=== PATIENT | male | born 1995 | race Caucasian/White ===

== ENCOUNTER 2016-10-06 21:21 | Inpatient (IN) | payer OTHER ==
[~2016-10-06] VITALS: Ht 182.9 cm; Wt 78.9 kg
[2016-10-06 21:30] VITALS: BP 149/95; PULSE 108; RESP 18; TEMP 97.3; O2SAT 98
--- NOTE | 2016-10-06 21:54 | PD ---
HPI Chief Complaint: Psychiatric Symptoms Time Seen by Provider: 21:47 Travel History International Travel<30 days: No Contact w/Intl Traveler<30days: No Traveled to known affect area: No History of Present Illness HPI 20-year-old male brought in under the Bunn act by local police. Patient was brought in after his mother reported that she feels he is using some type of drug, and patient is acting strangely and feels that he has some sort of "God". Patient has been acting aggressively at home. Patient is somewhat flat and unresponsive to questioning. He does appear to be under the influence of something. Patient has no medical complaints. He has no known drug allergies. PFSH Past Medical History Medical History: Denies Significant Hx Tetanus Vaccination: Unknown ?: Not Past Surgical History Surgical History: No Previous Surgery Social History Alcohol Use: No Tobacco Use: No Substance Use: No Allergies-Medications (Allergen,Severity, Reaction): Coded Allergies: No Known Allergies (Unverified , 10/06/16) Reported Meds & Prescriptions Reported Meds & Active Scripts Active Active Prescriptions or Reported Medications Unobtainable Review of Systems ROS Limitations: Clinical Condition, Altered Mental Status, Uncooperative Except as stated in HPI: all other systems reviewed are Neg General / Constitutional: No: Fever Eyes: No: Visual changes HENT: No: Headaches Cardiovascular: No: Chest Pain or Discomfort Respiratory: No: Shortness of Breath Gastrointestinal: No: Abdominal Pain Genitourinary: No: Dysuria Musculoskeletal: No: Pain Skin: No Rash Neurologic: No: Weakness Psychiatric: Positive: Disorder of Thought, No: Depression Endocrine: No: Polydipsia Hematologic/Lymphatic: No: Easy Bruising Physical Exam Exam Limitations: Poor Historian, Uncooperative Narrative GENERAL: Patient is seated crosslegged on the chair in no obvious distress. SKIN: Warm and dry. Normal color. Normal turgor. HEAD: Atraumatic. Normocephalic. EYES: Pupils equal and round. No scleral icterus. No injection or drainage. ENT: No nasal bleeding or discharge. Mucous membranes pink and moist. Pharynx is clear. NECK: Trachea midline. No JVD. CARDIOVASCULAR: Regular rate and rhythm. RESPIRATORY: No accessory muscle use. Clear to auscultation. Breath sounds equal bilaterally. MUSCULOSKELETAL: Extremities without clubbing, cyanosis, or edema. No obvious deformities. NEUROLOGICAL: Awake and alert. No obvious cranial nerve deficits. Motor grossly within normal limits. Five out of 5 muscle strength in the arms and legs. Normal speech. PSYCHIATRIC: Flat affect. Cannot assess completely due to the patient's clinical condition. Data Data Last Documented VS Vital Signs Date Time Temp Pulse Resp B/P Pulse Ox O2 Delivery O2 Flow Rate FiO2 10/06/16 21:30 97.3 108 18 149/95 98 Orders Complete Blood Count With Diff (10/06/16 21:44) Comprehensive Metabolic Panel (10/06/16 21:44) Psych Screen (10/06/16 21:44) Drug Screen, Random Urine (10/06/16 21:44) Alcohol (Ethanol) (10/06/16 21:44) Labs Laboratory Tests Test 10/06/16 21:55 White Blood Count 14.1 TH/MM3 Red Blood Count 5.61 MIL/MM3 Hemoglobin 16.5 GM/DL Hematocrit 47.7 % Mean Corpuscular Volume 85.1 FL Mean Corpuscular Hemoglobin 29.4 PG Mean Corpuscular Hemoglobin 34.6 % Concent Red Cell Distribution Width 13.2 % Platelet Count 259 TH/MM3 Mean Platelet Volume 9.2 FL Neutrophils (%) (Auto) 65.9 % Lymphocytes (%) (Auto) 20.9 % Monocytes (%) (Auto) 12.4 % Eosinophils (%) (Auto) 0.5 % Basophils (%) (Auto) 0.3 % Neutrophils # (Auto) 9.3 TH/MM3 Lymphocytes # (Auto) 2.9 TH/MM3 Monocytes # (Auto) 1.7 TH/MM3 Eosinophils # (Auto) 0.1 TH/MM3 Basophils # (Auto) 0.0 TH/MM3 CBC Comment DIFF FINAL Differential Comment Sodium Level 138 MEQ/L Potassium Level 4.2 MEQ/L Chloride Level 103 MEQ/L Carbon Dioxide Level 27.7 MEQ/L Anion Gap 7 MEQ/L Blood Urea Nitrogen 13 MG/DL Creatinine 1.25 MG/DL Estimat Glomerular Filtration 74 ML/MIN Rate Random Glucose 108 MG/DL Calcium Level 9.8 MG/DL Total Bilirubin 0.4 MG/DL Aspartate Amino Transf 16 U/L (AST/SGOT) Alanine Aminotransferase 19 U/L (ALT/SGPT) Alkaline Phosphatase 93 U/L Total Protein 9.2 GM/DL Albumin 5.2 GM/DL Ethyl Alcohol Level LESS THAN 3 MG/DL [facility] Medical Decision Making Medical Screen Exam Complete: Yes Emergency Medical Condition: Yes Differential Diagnosis Mood disorder. Possible drug reaction. Intoxication. Need for medical clearance for psychiatric evaluation. Bunn act. Narrative Course Patient appears medically stable at time of exam. Labs ordered including CBC, CMP, urinalysis, urine drug screen, and serum alcohol level. Patient is medically clear for psychiatric evaluation. Diagnosis Primary Impression: Psychiatric symptoms Additional Impression: Medical clearance for psychiatric admission Scripts Unable to Obtain Active Prescriptions or Reported Meds Condition: Stable Rogers Saenz Oct 06, 2016 21:54
[2016-10-06 22:28] LABS: AUTOMATED NEUTROPHIL # 9.3 TH/MM3 (1.8-7.7); BASOPHIL % 0.3 % (0.0-2.0); EOSINOPHIL # 0.1 TH/MM3 (0-0.4); EOSINOPHIL % 0.5 % (0.0-4.0); HEMATOCRIT 47.7 % (39.0-51.0); HEMO FLAGS DIFF FINAL; LYMPH % 20.9 % (9.0-44.0); LYMPHOCYTE # 2.9 TH/MM3 (1.0-4.8); MEAN CELL VOLUME 85.1 FL (80.0-100.0); MEAN CORPUSCULAR HEMOGLOBIN 29.4 PG (27.0-34.0); MEAN CORPUSCULAR HGB CONC 34.6 % (32.0-36.0); MONO % 12.4 % (0.0-8.0); NEUT % 65.9 % (16.0-70.0); PLATELET COUNT 259 TH/MM3 (150-450); RED BLOOD COUNT 5.61 MIL/MM3 (4.50-5.90); RED CELL DISTRIBUTION WIDTH 13.2 % (11.6-17.2); WHITE BLOOD COUNT 14.1 TH/MM3 (4.0-11.0)
[2016-10-06 22:46] LABS: ANION GAP 7 MEQ/L (5-15); AST (GOT) 16 U/L (15-39); BICARBONATE 27.7 MEQ/L (21.0-32.0); BLOOD UREA NITROGEN 13 MG/DL (7-18); CHLORIDE 103 MEQ/L (98-107); GLOMERULAR FILTRATION RATE 74 ML/MIN (>89); POTASSIUM 4.2 MEQ/L (3.5-5.1); SODIUM (NA) 138 MEQ/L (136-145)
[2016-10-06 22:49] LABS: ALKALINE PHOSPHATASE 93 U/L (45-117); ALT (GPT) 19 U/L (9-52); TOTAL BILIRUBIN ADULT 0.4 MG/DL (0.2-1.0)
[2016-10-07 02:21] LABS: AMPHETAMINE, URINE NEG (NEG); BARBITURATES, URINE NEG (NEG); COCAINE, URINE NEG (NEG)
[2016-10-07 02:56] VITALS: BP 138/44; PULSE 92; RESP 14; O2SAT 99
[2016-10-07 06:21] VITALS: BP_SYST 126; BP_DIAS 38; BP_DIAS 60; PULSE 88; RESP 12; O2SAT 98
[2016-10-07 07:28] VITALS: BP 140/76; PULSE 96; RESP 16; O2SAT 96
[2016-10-07 10:57] VITALS: BP 166/89; PULSE 100; RESP 20; TEMP 98.7; O2SAT 96
[2016-10-07] MEDS ORDERED: OLANZapine IM 10 MG VIAL IM ONE (11:30)
--- NOTE | 2016-10-07 13:04 | PD ---
History of Present Illness Chief Complaint: Psychiatric Symptoms Time Seen by Provider: 12:45 Travel History International Travel<30 Days: No Contact w/Intl Traveler<30days: No Known affected area: No Legal Status Legal Status: Bunn Act Bunn Act Signed By: Jemal Rashid History of Present Illness: History of Present Illness HPI 20-year-old male with no previous psychiatric history who is brought in under the [place] act by local police after his parents called them last night. . As per the report the patient " cannot answer where he is, how old he is, who the president is. Subject has aggressive unpredictable behavior. Subject believes he is some type of hinduism figure". There is no previous contact with [facility]. Positive toxicology for cannabinoids. The patient is seen in main ED and in J pod. He was wandering around the main ed. In J pod he begins to yell out very loudly and was found hiding in the corner of his room. When asked if he ever took any medication he answers " No, I only the Lord. That is my medication." Patient was medicated with Zyprexa and at present is asleep. Telephone call to patient's mother at [phone]. She provides the following clinical information. patient with no previous psychiatric symptomatology. he completed his degree in July and returned to [place] to find work. Last Sunday the patient called his mother and read some thoughts that he had been witting on index cards. mother reports thoughts appeared disorganized and were about the recent breakup with his girlfriend. On he called her and " it seemed he was reading out of a book and that his thinking was " chaotic and disorganized. he believes that he is a character in a game, sleeping only 2 hours per night, meditating over his food, chanting, They went and picked him up and brought him to [facility]. He was found naked in the middle of the night reading the bible and wanted to jump in the ocean. She found some videos of him on his telephone where he stared at the phone x 20 plus minutes. He has been smoking marijuana as well as taking some unknown " brain pills". To her knowledge he last took these pills on Sunday. recent stressors including not finding employment and his recent break up with his girlfriend. Mother reports that he will be moving in with them upon his discharge and she would like to be informed when discharge is being considered. [facility] Past Medical History Medical History: Denies Significant Hx Tetanus Vaccination: Unknown ?: Not Past Surgical History Surgical History: No Previous Surgery Psychiatric History Psychiatric History Hx Psychiatric Treatment: BRITTNEYE TO ASSESS History of Inpatient Treatment: No Guns or firearms in home: No Social History Single male. Recently graduated college. Living w 2 roommates. Hx Alcohol Use: No Hx Tobacco Use: No Hx Substance Use: Yes Substance Use Type: Marijuana Other Substances Used: REBEKA TO ASSESS. Mother reports he was taking unknown pills. Hx of Substance Use Treatment: No Family Psychiatric History None reported Allergies-Medications (Allergen,Severity, Reaction): Coded Allergies: No Known Allergies (Unverified , 10/06/16) Reported Meds & Prescriptions Reported Meds & Active Scripts Active Active Prescriptions or Reported Medications Unobtainable Review of Systems ROS Limitations: Psychotic Exam Alert: Yes [place]: Person Mood: Agitated Affect: Blunted Speech: Illogical Eye Contact: None Memory Intact: Comment (not tested) Hallucinations: Auditory (Patietn observed talking to himself.) Delusions: Yes Delusion Type: Other (hinduism. ) Suicidal: Ideation (unable to assess) Homicidal: Ideation (unable to assess) Insight/Judgement unable to determine MDM Medical Decision Making Medical Record Reviewed: Yes Assessment/Plan 20 year old male with no previous psychiatric history who presents in an acute psychotic state with significant hinduism preoccupation. At this time this patient requires inpatient psychiatric treatment to further observe, initiate treatment and to maintain his safety. It is unclear what substances he used prior to his presentation and if it contributed to his psychotic symptomatology. Orders Complete Blood Count With Diff (10/06/16 21:44) Comprehensive Metabolic Panel (10/06/16 21:44) Psych Screen (10/06/16 21:44) Drug Screen, Random Urine (10/06/16 21:44) Alcohol (Ethanol) (10/06/16 21:44) Diet Regular Basic (10/07/16 Breakfast) Diet Regular Basic (10/07/16 Lunch) Olanzapine Inj (Zyprexa Inj) (10/07/16 11:30) Diphenhydramine Inj (Benadryl Inj) (10/07/16 11:30) Results Vital Signs Date Time Temp Pulse Resp B/P Pulse Ox O2 Delivery O2 Flow Rate FiO2 10/07/16 10:57 98.7 100 20 166/89 96 Room Air 10/07/16 07:28 96 16 140/76 96 Room Air 10/07/16 06:21 88 12 126/60 98 Room Air 10/07/16 02:56 92 14 138/44 99 Room Air 10/06/16 21:30 97.3 108 18 149/95 98 Laboratory Tests Test 10/06/16 10/07/16 21:55 00:44 White Blood Count 14.1 Red Blood Count 5.61 Hemoglobin 16.5 Hematocrit 47.7 Mean Corpuscular Volume 85.1 Mean Corpuscular Hemoglobin 29.4 Mean Corpuscular Hemoglobin 34.6 Concent Red Cell Distribution Width 13.2 Platelet Count 259 Mean Platelet Volume 9.2 Neutrophils (%) (Auto) 65.9 Lymphocytes (%) (Auto) 20.9 Monocytes (%) (Auto) 12.4 Eosinophils (%) (Auto) 0.5 Basophils (%) (Auto) 0.3 Neutrophils # (Auto) 9.3 Lymphocytes # (Auto) 2.9 Monocytes # (Auto) 1.7 Eosinophils # (Auto) 0.1 Basophils # (Auto) 0.0 CBC Comment DIFF FINAL Differential Comment Sodium Level 138 Potassium Level 4.2 Chloride Level 103 Carbon Dioxide Level 27.7 Anion Gap 7 Blood Urea Nitrogen 13 Creatinine 1.25 Estimat Glomerular Filtration 74 Rate Random Glucose 108 Calcium Level 9.8 Total Bilirubin 0.4 Aspartate Amino Transf 16 (AST/SGOT) Alanine Aminotransferase 19 (ALT/SGPT) Alkaline Phosphatase 93 Total Protein 9.2 Albumin 5.2 Ethyl Alcohol Level LESS THAN 3 Urine Opiates Screen NEG Urine Barbiturates Screen NEG Urine Amphetamines Screen NEG Urine Benzodiazepines Screen NEG Urine Cocaine Screen NEG Urine Cannabinoids Screen POS Diagnosis Primary Impression: Psychosis Admitting Information Admitting Physician Requests: Admit (Dr. Victoria) Departure Forms: Tests/Procedures Patient Instructions: General Instructions, Brief Psychotic Disorder (ED) Additional Instructions: GO TO [facility] FOR FFURTHER EVALUATION AND TREATMENT Prescriptions Unable to Obtain Active Prescriptions or Reported Meds Disposition: 65 DISC TO PSYCH CARE FACILITY Condition: Stable Problem Qualifiers Primary Impression: Psychosis Qualified Code: F29 - Psychosis, unspecified psychosis type Sisi Gray Oct 07, 2016 13:04
[2016-10-07 14:03] VITALS: BP 103/60; PULSE 95; RESP 18
[2016-10-07] MEDS ORDERED: MAGNESIUM HYDROXIDE SUSP 30 ML CUP PO PRN (14:30)
[2016-10-07] MEDS ORDERED: ACETAMINOPHEN 325 MG TAB PO PRN (14:30)
[2016-10-07] MEDS ORDERED: ALUMINUM/MAGNESIUM/SIMETH 30 ML CUP PO PRN (14:30)
[2016-10-07 16:02] VITALS: BP 130/79; PULSE 87; RESP 16; TEMP 97.6; O2SAT 100
[2016-10-07] MEDS: diphenhydrAMINE HCL 50 MG/ML VIAL IM PRN (23:48)
[2016-10-08 06:20] VITALS: BP 153/82; PULSE 98; RESP 16; TEMP 98.6; O2SAT 95
[2016-10-08] MEDS ORDERED: INFLUENZA VIRUS VACCINE (QUADRIVALENT) 0.5 ML SYR IM ONE (10:00)
--- NOTE | 2016-10-08 10:44 | HHI.PYPN ---
Subjective Remarks This progress note is to document use of emergency medication for agitation. Pt is actively hallucinating pacing hallways and becoming increasingly agitated, despite staff intervention. Chart was reviewed. Pt previously given olanzapine 10mg x1 dose in ED due to agitation and tolerated without side effects. Pt was given olanzapine ODT IM x1 dose for agitation secondary to psychosis. Objective Alert: Yes [place]: Person Mood: Agitated, Anxious Affect: Blunted Memory Intact: Comment (not tested) Hallucinations: Auditory (severe internal stimulation) Delusions: Yes Delusion Type: Other (hinduism. ) Suicidal: Ideation (unable to assess) Homicidal: Ideation (unable to assess) Insight/Judgement poor Vitals/IOs Vital Signs Date Time Temp Pulse Resp B/P Pulse Ox O2 Delivery O2 Flow Rate FiO2 10/08/16 06:20 98.6 98 16 153/82 95 10/07/16 14:03 Room Air Assessment & Plan Problem List: (1) Psychosis ICD Code: F29 Assessment & Plan . Pt given olanzapine ODT. Continue to monitor carefully. Estimated LOS: days Justification for Cont. Inpt. psychosis Problem Qualifiers (1) Psychosis: Qualified Code: F29 - Psychosis, unspecified psychosis type Amina Shelley MD Oct 08, 2016 10:44
[2016-10-08] MEDS ORDERED: OLANZapine ODT 5 MG TAB PO ONE (11:00)
[2016-10-08 16:00] VITALS: BP 136/83; PULSE 111; RESP 16; TEMP 98.9; O2SAT 90
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
[2016-10-08] MEDS: OLANZapine ODT 10 MG TAB PO SCH (17:30)
[2016-10-08] MEDS: OLANZapine IM 10 MG VIAL IM SCH (17:33)
[2016-10-08 23:40] LABS: AMPHETAMINE, URINE NEG (NEG); BARBITURATES, URINE NEG (NEG); COCAINE, URINE NEG (NEG)
[2016-10-09] MEDS: diphenhydrAMINE HCL 50 MG/ML VIAL IM PRN ×2 (02:01→09:24)
[2016-10-09 06:16] VITALS: BP 151/73; PULSE 119; RESP 18; TEMP 98.1; O2SAT 99
[2016-10-09] MEDS: OLANZapine IM 10 MG VIAL IM SCH ×3 (09:00→18:00)
[2016-10-09] MEDS: OLANZapine ODT 10 MG TAB PO SCH ×3 (09:00→17:53)
--- NOTE | 2016-10-09 11:04 | PD.CONS ---
Provisional Diagnosis Admission Date Oct 07, 2016 at 14:22 [place] I. 1. Other psychotic disorder Rule out first break psychosis, psychosis due to a general medical condition , substance-induced psychotic disorder 2. Cannabis abuse [place] II. Deferred [place] V. GAF is 5 presently History of Present Illness Service Psychiatry Consult Requested By Dr. Victoria Reason for Consult Second opinion Primary Care Physician No Primary Care Physician HPI From Dr. Victoria's H&P: Patient is a 20-year-old white male comes here under [place] act by the [facility] dated 10/06/16 and 9 PM stating subject appears incoherent and cannot answer where he is I will hold he is or who Pres.'s subject has aggressive unpredictable behavior circuit believes he is some patient seen screened in the ED urine toxicology positive for marijuana. Patient seen on 2700 unit with nurse TV. Prior to my seeing him the staff noted that he had taken his jacket and wrapped around his neck tight squeezing it was removed before there is any injury. Place was placed in the dayroom for continuous observation. Attempted to speak with the patient in the day room sitting across from the table from him. Patient glared at me with an intense angry intimidating [place]. As I introduced myself he said that's not who you are you are a stranger. Then refuse to speak any further with me. I then visit with patient's mother and father spoke with them concerning his behaviors. Patient has no prior psychiatric contact hospitalization for psychotropic medication he did finish his first year of college during his senior year of high school who just graduated from [employer]. It appears he was using marijuana frequently while at [employer] it appears she may have been using psychostimulants there and perhaps some mail order type drugs and just drug supplied by friends. Family states no history mental illness in the family no history of alcohol or substance abuse. Patient was active in athletics appeared to been a well-liked. And socially active. Then the abdomen also some stress with what appeared to been a mutually agreed upon breakup of a relationship with his girlfriend. In any event at the present time patient remains quite psychotic O with a high risk for aggressive behavior. We agreed upon ordering Zyprexa 10 mg 3 times a day either by mouth or IM depending on his cooperation along with you with the okay for Ativan as needed and Benadryl as needed. I will also order the more detailed urine toxicology on this gentleman On my examination today: Patient seen and examined with counselor. Please note that this document serves also has my progress note for today as I'm assuming primary care of this patient. Chart reviewed. Case discussed with nursing staff on the inpatient psychiatric unit. I was informed early this morning that the patient had endeavored to self injure overnight by attempting to strangle himself with his shirt. I have immediately upon hearing of this ordered that the patient be placed on a one-to-one for safety. On my evaluation today, the patient is quite disorganized. He appears frankly internally stimulated. He says that he is hoping to find "words of truth." He has an odd, inappropriate affect. He says that his goals for being in the hospital "understanding." He does not deny any ongoing suicidal ideation and in fact was noted by 1:1 to try to get a bottle of baby shampoo to drink in some sort of self-injury but was redirected by the 1:1. Psychiatric interview is limited because of his degree of thought disorganization. He is unable to provide any past psychiatric, family, chemical dependency or social history for this reason. Patient's parents came to the hospital this morning to discuss patient's case. I have had a lengthy discussion with him regarding patient's differential diagnosis and treatment plan including workup of possible medical causes for his psychosis. They note that he has no previous history of mental illness and had been quite gregarious with no signs of the schizophrenia prodrome. He apparently has been growing increasingly disorganized over only the past 10 days or 2 weeks or so. Mother provides me with a series of messages that they found scrawled on papers in his room including "the of is judgment day" and "your will be remembered somehow by all influenced thoughts you take action upon." There is no known family history of mental illness except that patient's maternal uncle lost contact with the family several years ago, and he may have had some sort of mental illness diagnosis. Parents remain quite concerned about patient's safety. I spent about 20 minutes in consultation with them. Review of Systems ROS Limitations: Psychotic, Poor Historian Other He is a little tired from his medications. No reported headache, vision or hearing changes, chest pain, shortness of breath, bowel or bladder issues. No other somatic complaints. Past Family Social History Coded Allergies: Codeine (Verified Allergy, Unknown, 10/07/16) VERIFIES WITH MOTHER Past Medical History No known past medical history Unable to Obtain Active Prescriptions or Reported Meds Current Medications Medications (Trade) Dose Ordered Sig/Taj Route Start Time Stop Time Status Last Admin (Benadryl Inj) 50 mg Q6H PRN IM 10/07/16 11:30 10/09/16 09:24 (Tylenol) 650 mg Q4H PRN PO 10/07/16 14:30 (Milk Of Magnesia Liq) 30 ml DAILY PRN PO 10/07/16 14:30 (Mag-Al Plus Susp Liq) 30 ml Q6H PRN PO 10/07/16 14:30 (ZyPREXA ZYDIS ODT) 10 mg TID PO 10/08/16 18:00 (ZyPREXA INJ) 10 mg TID IM 10/08/16 18:00 10/09/16 09:00 Patient's Strengths (min. 2) Supportive family. In a monitored setting. Physical Exam Physical examination completed in the ED by ED provider. On my examination today, patient is well-nourished and well-developed. He is in no acute physical distress. Labs and vital signs reviewed. Vital Signs Vital Signs Date Time Temp Pulse Resp B/P Pulse Ox O2 Delivery O2 Flow Rate FiO2 10/09/16 06:16 98.1 119 18 151/73 99 10/07/16 14:03 Room Air Lab Results Item Value Date Time White Blood Count 14.1 TH/MM3 H 10/06/162154 Hemoglobin 16.5 GM/DL 10/06/162154 Platelet Count 259 TH/MM3 10/06/162154 Sodium Level 138 MEQ/L 10/06/162154 Potassium Level 4.2 MEQ/L 10/06/162154 Chloride Level 103 MEQ/L 10/06/162154 Carbon Dioxide Level 27.7 MEQ/L 10/06/162154 Anion Gap 7 MEQ/L 10/06/162154 Blood Urea Nitrogen 13 MG/DL 10/06/162154 Creatinine 1.25 MG/DL 10/06/162154 Aspartate Amino Transf (AST/SGOT) 16 U/L 10/06/162154 Alanine Aminotransferase (ALT/SGPT) 19 U/L 10/06/162154 Alkaline Phosphatase 93 U/L 10/06/162154 Urine Cannabinoids Screen POS H 10/07/16 0044 Ethyl Alcohol Level LESS THAN 3 MG/DL 10/06/162154 Extended urine toxicology pending. Mental Status Examination Patient is in [facility]. He has with a one-to-one. He is disheveled but appears to be maintaining basic hygiene. He is awake and alert and oriented to person and hospital. No abnormal motor movements noted. Speech is rambling and difficult to follow but not pressured. Language and fund of knowledge seem at least average. Patient is unable to describe his mood in any detail but affect is quite odd. Thought process extremely disorganized with significant loosening of associations. It appears paranoid delusions are present. He is frankly internally stimulated. He endeavored to self injure overnight and then again today. No homicidal ideation. Insight and judgment are quite poor. Assessment & Plan Problem List: (1) Psychosis ICD Code: F29 (2) Cannabis abuse ICD Code: F12.10 Assessment & Plan Given the circumstances of his presentation here in his presentation on my examination today, I concur with Dr. Victoria that the patient meets criteria for involuntary psychiatric hospitalization under the Bunn act. I have completed the second opinion paperwork. I am assuming primary care of this patient. We will continue the one-to-one for safety. Dr. Victoria started the patient on Zyprexa 10 mg 3 times a day by mouth or IM if needed. Although I would not normally start with such a robust dose, given the severity of patient' s symptoms and the fact that he is tolerating the few doses he has already received well with no side effects beyond some mild tiredness I think that it makes sense to continue with this medication as ordered for now in hopes of bringing patient's severe psychotic decompensation under better control. Given that it appears this patient's first psychotic episode, I will initiate a first break psychosis workup including laboratories and head CT. Follow-up extended urine toxicology screening. Continue to monitor closely on the inpatient unit. Continue other medications and care as ordered. Discharge Planning [place] impairments in safety. Impairment in reality construction. Impairment in social function. Very high risk for decompensation in a less restrictive environment. Request HC Surrog/Guard Advoc?: Yes Problem Qualifiers (1) Psychosis: Qualified Code: F28 - Other psychotic disorder not due to substance or known physiological condition Al Rm MD Oct 09, 2016 11:04
[2016-10-09] MEDS ORDERED: LORazepam 2 MG TAB PO PRN (15:30)
[2016-10-09] MEDS ORDERED: LORazepam 2 MG/ML VIAL IM PRN (15:30)
--- NOTE | 2016-10-09 17:51 | RADRPT ---
EXAM DATE/TIME: 10/09/2016 17:36 [facility] COMPARISON: No previous studies available for comparison. INDICATIONS : Altered mental status. RADIATION DOSE: 56.37 CTDIvol (mGy) MEDICAL HISTORY : None SURGICAL HISTORY : None. ENCOUNTER: Initial ACUITY: 1 day PAIN SCALE: 0/10 LOCATION: cranial TECHNIQUE: Multiple contiguous axial images were obtained of the head. Using automated exposure control and adj ustment of the mA and/or kV according to patient size, radiation dose was kept as low as reasonably a chievable to obtain optimal diagnostic quality images. FINDINGS: CEREBRUM: The ventricles are normal for age. No evidence of midline shift, mass lesion, hemorrhage or acute in farction. No extra-axial fluid collections are seen. POSTERIOR FOSSA: The cerebellum and brainstem are intact. The 4th ventricle is midline. The cerebellopontine angle i s unremarkable. EXTRACRANIAL: The visualized portion of the orbits is intact. SKULL: The calvaria is intact. No evidence of skull fracture. CONCLUSION: Normal examination. Gerson Cornell MD on October 09, 2016 at 17:49 Board Certified Radiologist. This report was verified electronically.
[2016-10-09 18:00] VITALS: BP 140/72; PULSE 111; RESP 18; TEMP 98; O2SAT 99
[2016-10-09 19:56] VITALS: BP 140/72; PULSE 111; RESP 18; TEMP 98; O2SAT 99
[2016-10-10 06:24] VITALS: BP 94/52; PULSE 85; RESP 16; TEMP 97.9
[2016-10-10 07:24] LABS: HEMATOCRIT 43.1 % (39.0-51.0); MEAN CELL VOLUME 84.7 FL (80.0-100.0); MEAN CORPUSCULAR HEMOGLOBIN 29.1 PG (27.0-34.0); MEAN CORPUSCULAR HGB CONC 34.4 % (32.0-36.0); PLATELET COUNT 197 TH/MM3 (150-450); RED BLOOD COUNT 5.09 MIL/MM3 (4.50-5.90); RED CELL DISTRIBUTION WIDTH 13.3 % (11.6-17.2); REVIEW FLAG FINAL; WHITE BLOOD COUNT 7.7 TH/MM3 (4.0-11.0)
[2016-10-10 07:47] LABS: ANION GAP 8 MEQ/L (5-15); BICARBONATE 26.5 MEQ/L (21.0-32.0); BLOOD UREA NITROGEN 14 MG/DL (7-18); CHLORIDE 107 MEQ/L (98-107); GLOMERULAR FILTRATION RATE 81 ML/MIN (>89); POTASSIUM 4.4 MEQ/L (3.5-5.1); SODIUM (NA) 141 MEQ/L (136-145)
[2016-10-10 07:49] LABS: HDL CHOLESTEROL 37.8 MG/DL (40.0-60.0); LDL CHOLESTEROL 23 MG/DL (0-99)
[2016-10-10] MEDS: OLANZapine ODT 10 MG TAB PO SCH ×3 (08:12→17:13)
[2016-10-10] MEDS: OLANZapine IM 10 MG VIAL IM SCH ×3 (08:35→17:13)
[2016-10-10 11:23] LABS: HEMOGLOBIN A1a 0.7 %; HEMOGLOBIN A1b 0.9 %; HEMOGLOBIN Ao 86.7 %; HEMOGLOBIN F 0.7 %; HEMOGLOBIN LA1C 1.8 %; HEMOGLOBIN P3 3.5 %
--- NOTE | 2016-10-10 11:46 | HHI.PYPN ---
Subjective Remarks Patient seen and examined with counselor and nurse in treatment team. Chart reviewed. Case discussed with nursing staff, counselor an occupational therapist. Per nursing staff, patient is somewhat more organized and slept well overnight. On my examination today, the patient says "I'm healing. It seemed like I was hearing voices. I feel like it is working" alluding to the medications. Regarding the self-harm that he attempted yesterday he says "I was trying to show myself I had the power to do things, but there is no reward for trying to hurt yourself." He denies any suicidal ideation or urge to self injure at this time. He says that he is started hearing voices a week and a half or 2 ago after he had taken pills that he bought off the Internet to help him exercise. He makes some vague allusion to questioning his sexuality. Denies side effects from medications and feels like they are helping. Review of Systems ROS Limitations: Psychotic, Poor Historian Other No reported physical complaints today. Objective Alert: Yes [place]: Person, Place Mood: Calm Affect: Flat Memory Intact: Comment (seems fair on clinical exam) Hallucinations: Other (denies AVH at this time) Delusions: Yes Delusion Type: Paranoid Suicidal: Ideation (denies suicidal ideation) Homicidal: Ideation (denies homicidal ideation) Insight/Judgement Poor Remarks No motoric abnormalities noted. No hand tremor, no dystonia, no dyskinesia. Thought process somewhat more organized. Speech remains a little rambling. Labs Test 10/10/16 06:55 White Blood Count 7.7 TH/MM3 Red Blood Count 5.09 MIL/MM3 Hemoglobin 14.8 GM/DL Hematocrit 43.1 % Mean Corpuscular Volume 84.7 FL Mean Corpuscular Hemoglobin 29.1 PG Mean Corpuscular Hemoglobin 34.4 % Concent Red Cell Distribution Width 13.3 % Platelet Count 197 TH/MM3 Mean Platelet Volume 8.9 FL Sodium Level 141 MEQ/L Potassium Level 4.4 MEQ/L Chloride Level 107 MEQ/L Carbon Dioxide Level 26.5 MEQ/L Anion Gap 8 MEQ/L Blood Urea Nitrogen 14 MG/DL Creatinine 1.15 MG/DL Estimat Glomerular Filtration 81 ML/MIN Rate Random Glucose 88 MG/DL Calcium Level 8.8 MG/DL Ammonia 56 MCMOL/L Triglycerides Level 68 MG/DL Cholesterol Level 74 MG/DL LDL Cholesterol 23 MG/DL HDL Cholesterol 37.8 MG/DL Cholesterol/HDL Ratio 1.95 RATIO Vitamin B12 Level 820 PG/ML Thyroid Stimulating Hormone 1.130 uIU/ML 3rd Gen Rapid Plasma Reagin NON-REACTIVE Labs reviewed. Besides mild hyperammonemia, no abnormalities that might contribute to patient's mental state. Head CT was read as normal. Extended toxicology and HIV screen are still pending. Vitals/IOs Vital Signs Date Time Temp Pulse Resp B/P Pulse Ox O2 Delivery O2 Flow Rate FiO2 10/10/16 06:24 97.9 85 16 94/52 10/09/16 18:00 99 10/07/16 14:03 Room Air Assessment & Plan Problem List: (1) Psychosis ICD Code: F29 (2) Cannabis abuse ICD Code: F12.10 Assessment & Plan Patient seems improved today although he remains quite severely decompensated in his psychosis. I will continue the Zyprexa as ordered as it is already dosed at the top of the range. Given the hyperammonemia, I will check a hepatitis panel although his LFTs are within normal limits. Patient to remain on one-to-one for safety, although the patient may go off the unit for activities with his one-to-one. Continue other medications and care as ordered. Justification for Cont. Inpt. Impairment in reality construction. Impairment in social function. Impairment in safety. High risk for decompensation in a lower level of care. Discharge Planning Pending psychiatric stabilization Request HC Surrog/Guard Advoc?: Yes Problem Qualifiers (1) Psychosis: Qualified Code: F28 - Other psychotic disorder not due to substance or known physiological condition Al Rm MD Oct 10, 2016 11:46
[2016-10-11 05:52] VITALS: BP 106/56; PULSE 71; RESP 18; TEMP 97.9; O2SAT 98
[2016-10-11] MEDS: OLANZapine ODT 10 MG TAB PO SCH ×3 (08:43→17:50)
[2016-10-11] MEDS: OLANZapine IM 10 MG VIAL IM SCH ×3 (08:45→17:52)
--- NOTE | 2016-10-11 15:01 | HHI.PYPN ---
Subjective Remarks Patient seen and examined with counselor. Chart reviewed. Case discussed with nursing staff. No further episodes of attempted self injury. Patient remains on one-to-one. On my examination today, patient's thought process seems more linear. He remains somewhat religiously preoccupied. He denies audiovisual hallucinations. He denies suicidal or homicidal ideation. He denies any urge to self injure. He denies side effects from psychotropic medications. Placed a call to patient's mother. She reports that she has discovered that the medication that he had used prior to admission was armodafinil. She has visited often with patient and feels he has made an "amazing recovery" but feels he is not yet at his psychiatric baseline. We have an extensive discussion about the current differential diagnosis, and I provide psychoeducation regarding the natural history of psychoses, positive and negative symptoms, and prognostic factors. Family is contemplating a residential program for extended stabilization after discharge from here at [facility]. We also discuss the need for close psychiatric follow up and eventual tapering, but not abrupt discontinuation, of antipsychotics once patient has had an extended period of stability. She thanks me for the call. Review of Systems ROS Limitations: Poor Historian Other No physical complaints today. Objective Alert: Yes [place]: Person, Place, Date Mood: Calm Affect: Blunted Memory Intact: Comment (Remains fair) Hallucinations: Other (Denies AVH) Delusions: Yes Delusion Type: Other (jain, lessening) Suicidal: Ideation (denies suicidal ideation) Homicidal: Ideation (denies homicidal ideation) Insight/Judgement Poor but perhaps improving somewhat. Remarks No hand tremor, no dystonia, no dyskinesia, no other motoric abnormalities noted. Thought process more linear. Speech within normal limits for rate, tone and volume. Grooming and hygiene are fairly good. Labs Labs reviewed. No new labs. Vitals/IOs Vital Signs Date Time Temp Pulse Resp B/P Pulse Ox O2 Delivery O2 Flow Rate FiO2 10/11/16 05:52 97.9 71 18 106/56 98 10/07/16 14:03 Room Air Assessment & Plan Problem List: (1) Psychosis ICD Code: F29 (2) Cannabis abuse ICD Code: F12.10 Assessment & Plan Continue Zyprexa as ordered. Given lack of ongoing self-injury, d/c 1:[address] [id number] during the day, close obs at night. D/w RN. Recheck an ammonia level in the morning. Continue other medications and care as ordered. Justification for Cont. Inpt. Impairment in reality construction. Monitoring for impairments in safety. Risk for decompensation pending psychiatric stabilization. Discharge Planning Pending outcome of [place] tomorrow. Request HC Surrog/Guard Advoc?: Yes Problem Qualifiers (1) Psychosis: Qualified Code: F28 - Other psychotic disorder not due to substance or known physiological condition Al Rm MD Oct 11, 2016 15:01
[2016-10-11 18:15] VITALS: BP 142/67; PULSE 110; RESP 16; TEMP 98.3; O2SAT 97
[2016-10-12 05:32] VITALS: BP 132/73; PULSE 70; RESP 18; TEMP 97.4; O2SAT 98
[2016-10-12] MEDS: OLANZapine ODT 10 MG TAB PO SCH (08:51)
[2016-10-12] MEDS: OLANZapine IM 10 MG VIAL IM SCH (09:00)
[2016-10-12 10:25] LABS: BATH SALTS (MDPV) UR NEG (NEG); ECSTASY (MDMA) UR NEG (NEG); HEROIN (6-ACETYLMORPHINE) UR NEG (NEG); K2 SPICE UR NEG (NEG); OBMETHADONE UR NEG (NEG); OXYCODONE (PERCODAN) NEG (NEG); PHENCYCLIDINE URINE NEG (NEG)
--- NOTE | 2016-10-12 11:40 | HHI.PYPN ---
Subjective Remarks Patient seen and case discussed with nursing staff. Chart reviewed. No behavioral issues noted. For me today, patient seems improved. His thought process is more linear. No evidence of ongoing delusional material. He is able to provide a coherent narrative of the circumstances of his presentation here. He admits to abusing substances prior to admission. He is sociable on the unit and is interacting well with others. No side effects from medications. Patient's family was present at Court today at working on getting the patient into a residential treatment program after discharge from here. Review of Systems Other No reported physical complaints Objective Alert: Yes [place]: Person, Place, Date Mood: Calm Affect: Blunted (more full and reactive today) Memory Intact: Comment (Remains fair) Hallucinations: Other (no AVH) Delusions: No Delusion Type: Other (no ubaldo delusional material) Suicidal: Ideation (no SI) Homicidal: Ideation (no HI) Insight/Judgement Improving Remarks Thought process more linear. No abnormal motor movements noted. No excessive sedation. Grooming and hygiene are fair. Labs Test 10/12/16 07:23 Ammonia 34 MCMOL/L Labs reviewed. Ammonia level decreased. Vitals/IOs Vital Signs Date Time Temp Pulse Resp B/P Pulse Ox O2 Delivery O2 Flow Rate FiO2 10/12/16 05:32 97.4 70 18 132/73 98 Assessment & Plan Problem List: (1) Psychosis ICD Code: F29 (2) Cannabis abuse ICD Code: F12.10 Assessment & Plan Patient is definitely on a trajectory of improvement. Given the severity of his initial psychiatric symptomatology, I think it is prudent to observe the patient to ensure good resolution of psychiatric symptomatology prior to discharge to a lower level of care. Operationally, I think we could anticipate discharge sometime beginning of next week. In the meantime, I will adjust his Zyprexa dosing to 15 mg twice a day to simplify medication regimen after discharge. I will also decrease his Ativan PRN. Patient's case was presented to the [place] act court and was placed in continuance for 2 weeks. Justification for Cont. Inpt. Monitoring for impairments in safety. Medication changes. Discharge Planning Anticipate transition to residential program at [facility] on Sunday/Sunday. Request HC Surrog/Guard Advoc?: Yes Problem Qualifiers (1) Psychosis: Qualified Code: F28 - Other psychotic disorder not due to substance or known physiological condition Al Rm MD Oct 12, 2016 11:40
[2016-10-12] MEDS ORDERED: LORazepam 2 MG TAB PO PRN (15:30)
[2016-10-12] MEDS ORDERED: LORazepam 2 MG/ML VIAL IM PRN (15:30)
[2016-10-12 19:24] VITALS: BP 141/78; PULSE 96; RESP 16; TEMP 98.8
[2016-10-12] MEDS: OLANZapine ODT 15 MG TAB PO SCH (20:12)
[2016-10-13 05:50] VITALS: BP 109/56; PULSE 82; RESP 18; TEMP 97.6; O2SAT 97
[2016-10-13] MEDS: OLANZapine ODT 15 MG TAB PO SCH ×2 (08:26→20:24)
--- NOTE | 2016-10-13 10:35 | HHI.PYPN ---
Subjective Remarks Patient seen and examined with counselor. Chart reviewed. Case discussed with nursing staff who reports that the patient's psychosis is improved although he does struggle to maintain linearity of thought during extended conversation. On my examination this morning, the patient is calm and in good behavioral control. He is able to recapitulate the treatment plan in some detail and is in agreement with the plan. He would like to return home with his family over the weekend and then enter into the residential program Sunday but understands that it would be prudent for him to remain on the inpatient unit to allow for direct transfer to the residential program. He does remain somewhat religiously preoccupied and says that he wants someone "to guide me into a new way." He is somewhat anxious. Denies any suicidal ideation. Denies side effects from medications. Review of Systems Other No physical complaints Objective Alert: Yes [place]: Person, Place, Date Mood: Calm Affect: Other (fairly full and reactive) Memory Intact: Comment (at least fair) Hallucinations: Other (no AVH) Delusions: No Delusion Type: Other (possibly some lingering adventism preoccupation but no other delusional material.) Suicidal: Ideation (denies suicidal ideation) Homicidal: Ideation (no HI) Insight/Judgement Improving Remarks Thought process more linear. Speech is within normal limits for rate, tone and volume. No motoric abnormalities noted. Labs Labs reviewed. No new labs. Vitals/IOs Vital Signs Date Time Temp Pulse Resp B/P Pulse Ox O2 Delivery O2 Flow Rate FiO2 10/13/16 05:50 97.6 82 18 109/56 97 Assessment & Plan Problem List: (1) Psychosis ICD Code: F29 (2) Cannabis abuse ICD Code: F12.10 Assessment & Plan Continue Zyprexa as ordered. Continue other medications and care as ordered. Justification for Cont. Inpt. Monitoring on the unit for further resolution of psychosis. Discharge Planning Patient does seem to be improving and would likely be safe for transport to residential program Sunday barring some clinical deterioration over the weekend. Request HC Surrog/Guard Advoc?: Yes Problem Qualifiers (1) Psychosis: Qualified Code: F28 - Other psychotic disorder not due to substance or known physiological condition Al Rm MD Oct 13, 2016 10:35
[2016-10-13 22:34] VITALS: BP 141/78; PULSE 96; RESP 16; TEMP 98.8; O2SAT 98
[2016-10-14 06:08] VITALS: BP 103/55; PULSE 67; RESP 16; TEMP 97.7; O2SAT 96
[2016-10-14] MEDS: OLANZapine ODT 15 MG TAB PO SCH ×2 (08:29→21:00)
--- NOTE | 2016-10-14 15:03 | HHI.PYPN ---
Subjective Remarks Patient was seen and case discussed with nursing. Patient is polite and formal during the interview. Pleasant and cooperative per nursing. Social with others however also spending a lot of time in his room. Patient attributes his psychotic behavior to drug use denies any auditory or visual hallucinations. Denies suicidal ideation intent or plan. Compliant with medications, good insight Objective Alert: Yes [place]: Person, Place, Date Mood: Calm Affect: Other (fairly full and reactive) Memory Intact: Comment (at least fair) Hallucinations: Other (no AVH) Delusions: No Delusion Type: Other (possibly some lingering orthodoxy preoccupation but no other delusional material.) Suicidal: Ideation (denies suicidal ideation) Homicidal: Ideation (no HI) Insight/Judgement Poor Vitals/IOs Vital Signs Date Time Temp Pulse Resp B/P Pulse Ox O2 Delivery O2 Flow Rate FiO2 10/14/16 06:08 97.7 67 16 103/55 96 Assessment & Plan Problem List: (1) Psychosis ICD Code: F29 (2) Cannabis abuse ICD Code: F12.10 Assessment & Plan Continue current treatment plan Justification for Cont. Inpt. Patient will decompensate in a less restrictive setting Request HC Surrog/Guard Advoc?: Yes Problem Qualifiers (1) Psychosis: Qualified Code: F28 - Other psychotic disorder not due to substance or known physiological condition Guanako Reyes DO Oct 14, 2016 15:03
[2016-10-14 19:42] VITALS: BP 152/69; PULSE 87; RESP 18; TEMP 97; O2SAT 98
[2016-10-15 05:34] VITALS: BP 127/65; PULSE 75; RESP 16; TEMP 98.7; O2SAT 97
[2016-10-15] MEDS: OLANZapine ODT 15 MG TAB PO SCH ×2 (09:00→20:26)
[2016-10-15 16:56] VITALS: BP 122/61; PULSE 75; RESP 16; TEMP 98.7; O2SAT 97
--- NOTE | 2016-10-15 17:11 | HHI.PYPN ---
Subjective Remarks Patient was seen and case discussed with nursing. Patient is pleasant and cooperative with exam. Continues to improve. Every 4 to his discharge to [facility]. Compliant with medications. No psychosis elicited Objective Alert: Yes Hanson: Person, Place, Date Mood: Calm Affect: Other (fairly full and reactive) Memory Intact: Comment (at least fair) Hallucinations: Other (no AVH) Delusions: No Delusion Type: Other (possibly some lingering advent preoccupation but no other delusional material.) Suicidal: Ideation (denies suicidal ideation) Homicidal: Ideation (no HI) Insight/Judgement Poor Vitals/IOs Vital Signs Date Time Temp Pulse Resp B/P Pulse Ox O2 Delivery O2 Flow Rate FiO2 10/15/16 16:56 98.7 75 16 122/61 97 Assessment & Plan Problem List: (1) Psychosis ICD Code: F29 (2) Cannabis abuse ICD Code: F12.10 Assessment & Plan Continue current treatment plan Justification for Cont. Inpt. Patient will decompensate in a less restrictive setting Request HC Surrog/Guard Advoc?: Yes Problem Qualifiers (1) Psychosis: Qualified Code: F28 - Other psychotic disorder not due to substance or known physiological condition Guanako Reyes DO Oct 15, 2016 17:11
[2016-10-15 20:28] VITALS: BP 120/58; PULSE 88; RESP 16; TEMP 97.4; O2SAT 97
[2016-10-16 05:51] VITALS: BP 124/66; PULSE 80; RESP 16; TEMP 97.5; O2SAT 95
[2016-10-16] MEDS: OLANZapine ODT 15 MG TAB PO SCH (09:00)
[2016-10-16] MEDS ORDERED: ZYPR15TA PO (09:49)
--- NOTE | 2016-10-16 09:50 | HHI.DS ---
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 Victoria's H&P: Patient is a 20-year-old white male comes here under [place] act by the [facility] [employer] dated 10/06/16 and 9 PM stating subject appears incoherent and cannot answer where he is I will hold he is or who Pres.'s subject has aggressive unpredictable behavior circuit believes he is some patient seen screened in the ED urine toxicology positive for marijuana. Patient seen on 2700 unit with nurse TV. Prior to my seeing him the staff noted that he had taken his jacket and wrapped around his neck tight squeezing it was removed before there is any injury. Place was placed in the dayroom for continuous observation. Attempted to speak with the patient in the day room sitting across from the table from him. Patient glared at me with an intense angry intimidating Franck. As I introduced myself he said that's not who you are you are a stranger. Then refuse to speak any further with me. I then visit with patient's mother and father spoke with them concerning his behaviors. Patient has no prior psychiatric contact hospitalization for psychotropic medication he did finish his first year of college during his senior year of high school who just graduated from [employer]. It appears he was using marijuana frequently while at [employer] it appears she may have been using psychostimulants there and perhaps some mail order type drugs and just drug supplied by friends. Family states no history mental illness in the family no history of alcohol or substance abuse. Patient was active in athletics appeared to been a well-liked. And socially active. Then the abdomen also some stress with what appeared to been a mutually agreed upon breakup of a relationship with his girlfriend. In any event at the present time patient remains quite psychotic O with a high risk for aggressive behavior. We agreed upon ordering Zyprexa 10 mg 3 times a day either by mouth or IM depending on his cooperation along with you with the okay for Ativan as needed and Benadryl as needed. I will also order the more detailed urine toxicology on this gentleman On my examination today: Patient seen and examined with counselor. Please note that this document serves also has my progress note for today as I'm assuming primary care of this patient. Chart reviewed. Case discussed with nursing staff on the inpatient psychiatric unit. I was informed early this morning that the patient had endeavored to self injure overnight by attempting to strangle himself with his shirt. I have immediately upon hearing of this ordered that the patient be placed on a one-to-one for safety. On my evaluation today, the patient is quite disorganized. He appears frankly internally stimulated. He says that he is hoping to find "words of truth." He has an odd, inappropriate affect. He says that his goals for being in the hospital "understanding." He does not deny any ongoing suicidal ideation and in fact was noted by 1:1 to try to get a bottle of baby shampoo to drink in some sort of self-injury but was redirected by the 1:1. Psychiatric interview is limited because of his degree of thought disorganization. He is unable to provide any past psychiatric, family, chemical dependency or social history for this reason. Patient's parents came to the hospital this morning to discuss patient's case. I have had a lengthy discussion with him regarding patient's differential diagnosis and treatment plan including workup of possible medical causes for his psychosis. They note that he has no previous history of mental illness and had been quite gregarious with no signs of the schizophrenia prodrome. He apparently has been growing increasingly disorganized over only the past 10 days or 2 weeks or so. Mother provides me with a series of messages that they found scrawled on papers in his room including "the of is judgment day" and "your will be remembered somehow by all influenced thoughts you take action upon." There is no known family history of mental illness except that patient's maternal uncle lost contact with the family several years ago, and he may have had some sort of mental illness diagnosis. Parents remain quite concerned about patient's safety. I spent about 20 minutes in consultation with them. Tobacco Use In Past 30 Days: No Tobacco Past 30 Days Alcohol Use: Never Hospital Course Patient was admitted to a locked, inpatient psychiatric unit. Appropriate precautions were in place throughout patient's hospital stay. Patient was seen and examined daily on the unit by psychiatry and also visited by counselor. Medications were adjusted. Patient tolerated medications well without side effects. Patient had marked improvement in his presenting psychiatric symptomatology. His psychosis resolved. There was evidence of self-injurious behavior initially on the unit but this rapidly resolved with treatment and the patient was able to be safely taken off of one-to-one precautions. There was no evidence of any homicidality or violence on the unit. Once patient's psychosis was improved he participated well in unit activities and was in good behavioral control. Patient's counselor worked with parents to arrange for transition to a residential treatment program at [facility]. On the day of discharge: Patient seen and examined with nursing staff. Chart reviewed. Case discussed with nursing staff. Patient has been no behavioral problem overnight. On my examination today, the patient presents with linear thought process. He says that he feels well and ready for discharge from the inpatient psychiatric unit. He does complain of a little bit of anticipatory anxiety on the occasion of the transition to the residential program but feels this is the best step for him. He denies any SI or HI. He denies any audiovisual hallucinations and I can elicit no paranoia, no ideas of reference, no thought insertion or withdrawal, no grandiosity or other delusional material. There are no hypomanic or manic symptoms, nor are there any depressive symptoms. He is tolerating psychotropics well without side effects. He has no somatic complaints. Weighing the acute, chronic, and protective factors and based on the available evidence, I psychological stress evaluator to a reasonable degree of medical certainty that the patient is at low imminent risk of harm to self or others from a mental illness and his level of function is adequate for planned level of care on discharge. Patient has maximized benefit from this acute stabilization hospitalization and will be transitioned today to residential program at [facility]. Patient is to follow-up psychiatrically as recommended by counselor and also to follow-up with primary care. I counseled the patient regarding warning signs for need to return to the psychiatric emergency room as part of the general safety plan. Results Blood Pressure 124 / 66 Vital Signs Date Time Temp Pulse Resp B/P Pulse Ox O2 Delivery O2 Flow Rate FiO2 10/16/16 05:51 97.5 80 16 124/66 95 Item Value Date Time White Blood Count 7.7 TH/MM3 10/10/16 0655 Hemoglobin 14.8 GM/DL 10/10/16 0655 Red Cell Distribution Width 13.3 % 10/10/16 0655 Sodium Level 141 MEQ/L 10/10/16 0655 Potassium Level 4.4 MEQ/L 10/10/16 0655 Chloride Level 107 MEQ/L 10/10/16 0655 Carbon Dioxide Level 26.5 MEQ/L 10/10/16 0655 Blood Urea Nitrogen 14 MG/DL 10/10/16 0655 Creatinine 1.15 MG/DL 10/10/16 0655 Random Glucose 88 MG/DL 10/10/16 0655 Hemoglobin A1c 5.1 % 10/10/16 0655 Aspartate Amino Transf (AST/SGOT) 16 U/L 10/06/16 2155 Alanine Aminotransferase (ALT/SGPT) 19 U/L 10/06/165 Alkaline Phosphatase 93 U/L 10/06/165 Vitamin B12 Level 820 PG/ML 10/10/16 0655 Thyroid Stimulating Hormone 3rd Gen 1.130 uIU/ML 10/10/16 0655 Ammonia 34 MCMOL/L H 10/12/16 0723 Urine Cannabinoids Screen POS H 10/07/16 0044 Urine Cannabinoids Confirmation POS H 10/07/16 0044 Ethyl Alcohol Level LESS THAN 3 MG/DL 10/06/165 Rapid Plasma Reagin NON-REACTIVE 10/10/16 0655 Hepatitis A IgM Antibody NEGATIVE 10/10/16 1219 Hepatitis B Surface Antigen NEGATIVE 10/10/16 1219 Hepatitis B Core IgM Antibody NEGATIVE 10/10/16 1219 Hepatitis C Antibody NEGATIVE 10/10/16 1219 HIV (1&2) Antibody NEGATIVE 10/10/16 0655 Summary of Procedures None done Imaging Last Impressions Head CT 10/09/16 0000 Signed Impressions: Service Date/Time: Sunday, October 09, 2016 17:36 - CONCLUSION: Normal examination. Gerson Cornell MD Pending results at discharge: No Medications # of Antipsychotic meds at D/C: 1 Approp Antipsych med options 1 - Minimum of three failed multiple trials of monotherapy. 2 - Documented plan to taper to monotherapy due to previous use of multiple meds OR cross-taper in progress at D/C. 3 - Documentation of augmentation of Clozapine. 4 - Justification other than those listed in allowable values 1-3, document here : Discharge Discharge Date: Oct 16, 2016 Discharge Diagnosis: (1) Brief psychotic disorder Diagnosis: Principal (suspect drug-induced psychosis but rule out first break of primary psychotic disorder. In any event, stabilized and improved versus admission.) ICD Code: F23 (2) Cannabis abuse Diagnosis: Secondary (counseled to quit) ICD Code: F12.10 GAF on discharge is 55 Mental Status Exam at Disch Patient is in hospital gown. He is well groomed. He is awake and alert and oriented 3. No abnormal motor movements noted. No hand tremor, no dystonia, no dyskinesia. Speech is within normal limits for rate, tone and volume. Language and fund of knowledge seemed above average. Mood is good and affect is full and reactive. Thought process linear. No loosening of associations. No evident delusions. Denies audiovisual hallucinations. Denies suicidal or homicidal ideation. Insight and judgment are fair. Pt Condition on Discharge: Stable Discharge Disposition: Discharge Home (Family to transport to [facility]) Discharge Instructions Diet Instructions: As Tolerated, No Restrictions Activities you can perform: Weight Bearing as Maddi Scheduled Appointment: Yenny Villalpando Appointment Date: Oct 16, 2016 Appointment Time: 1:00pm New Medications: Olanzapine (Zyprexa) 15 Mg Tab 15 MG PO BID Mental Health Days 15 Ref 1 TAB Discharge Time <= 30 minutes Discharge/Advance Care Plan Health Problems: (1) Psychosis (2) Cannabis abuse Goals to promote your health * To prevent worsening of your condition and complications * To maintain your health at the optimal level Directions to meet your goals Take your medications as prescribed Follow your dietary instruction Follow activity as directed Keep your appointments as scheduled Take your immunizations and boosters as scheduled If your symptoms worsen call your PCP, if no PCP go to Urgent Care Center or Emergency Room For 24/ questions related to your inpatient stay or results of tests pending at discharge, please contact Dr. Al Rm at Smoking is Dangerous to Your Health. Avoid second hand smoking Problem Qualifiers (1) Psychosis: Qualified Code: F29 - Psychosis, unspecified psychosis type Al Rm MD Oct 16, 2016 09:50
== END 2016-10-16 10:55 | DRG 885 ==
LOC: NEPA 21:21 → NEDA 10-07 14:22 → H270 10-07 15:30
PROVIDERS: ADMIT Psychiatry & Neurology Psychiatry; ATTEND Psychiatry & Neurology Psychiatry
DX: F23 Brief psychotic disorder (principal); E72.20 Disorder of urea cycle metabolism, unspecified; F41.9 Anxiety disorder, unspecified; F12.10 Cannabis abuse, uncomplicated
CPT/HCPCS: 70450; 80048; 80053; 80061; 80074; 80307; 80320; 82140; 82607; 83036; 84443; 85025; 85027; 86592; 86703; 96372; G0481; J1200; J2060